=== PATIENT | male | born 1995 | race Hispanic/Latino ===

== ENCOUNTER 2019-09-24 01:00 | Emergency (ER) | payer SELFPAY | END 2019-09-24 02:23 | LOC: EDH 01:00 | DX: R51 Headache (principal); Z72.0 Tobacco use; V43.51XA Car driver injured in collision with sport utility vehicle in traffic accident, initial encounter; Y93.89 Activity, other specified; Y92.488 Other paved roadways as the place of occurrence of the external cause; Y99.8 Other external cause status ==

== ENCOUNTER 2020-03-29 22:50 | Emergency (ER) | payer OTHER | END 2020-03-29 23:51 | disposition home or self-care (01) | LOC: EDH 22:50 | DX: H60.392 Other infective otitis externa, left ear (principal); Z72.0 Tobacco use ==